=== PATIENT | male | born 1955 | race Caucasian/White ===

== ENCOUNTER 2020-07-31 09:06 | Day surgery (SDC) | payer BC ==
--- OUTSIDE RECORDS SUMMARY | 2020-07-31 09:08 | XMS REPORT | Clinical Summary ---
:1955 Author Organization [facility] Address [address] [place] [address] Care Team Providers Name Role Phone Provider Primary Care Provider Unavailable Allergies No Known Active Allergies Medications Medication Sig Dispensed Refills Start Date End Date Status rosuvastatin (CRESTOR) Take 40 mg by 0 Active 40 MG tablet mouth 3 (three) times a week. Every M-W- ALPRAZolam (XANAX) 0.25 Take 0.25 mg by 0 Active MG tablet mouth nightly. valsartan-hydrochloroth Take 1 tablet by 0 Active iazide (DIOVAN-HCT) mouth nightly. 320-12.5 mg per tablet famotidine (PEPCID) 10 Take 10 mg by 0 Active MG tablet mouth nightly. aspirin (ECOTRIN) 81 MG Take 81 mg by 0 Active enteric coated tablet mouth nightly. Active Problems Problem Noted Date Other urethral stricture, male, meatal 11/22/2018 Surgical History Surgery Date Site/Laterality Comments HERNIA REPAIR 07/03/1979 - Right Inguinal 07/02/1980 HAND SURGERY 07/03/1974 - Right bone repairof th umb 07/02/1975 COLONOSCOPY W/ POLYPECTOMY MEATOTOMY 12/07/2018 MEATOTOMY, URETHRA, ADULT, 12/07/2018 N/A Proce dure: MEATOTOMY MALE REPAIR; Surgeon : Darian Turcios MD; L ocation: [facility]; Se rvice: Urology; Latera lity: N/A; Medical History Medical History Date Comments Anesthesia NHAP; NFHAP Wears glasses Dentition All teeth intact and secured Hypertension Hypercholesteremia Exercises 3 to 4 times per week walks an d climb stairs with no chest pain or sob. Coronary artery disease denies any chest pain. GERD (gastroesophageal reflux disease) Hx of urethral stricture Social History Tobacco Use Types Packs/Day Years Used Date Former Smoker Cigarettes 1 10 Quit: 1985 Smokeless Tobacco: Never Used Alcohol Use Drinks/Week oz/Week Comments Yes 2 drinks per wee k Sex Assigned at Date Recorded Not on file Last Filed Vital Signs Not on file Plan of Treatment Health Maintenance Due Date Last Done Comments COVID-19 VACCINE (1 of 2) 1973 COLONOSCOPY SCREENING 2007 SHINGLES VACCINES (#1) 2007 INFLUENZA VACCINE 02/01/2020 Results Not on fileafter 07/31/2019 Advance Directives For more information, please contact: [phone] Type Date Recorded Patient Bill Hiker Explanati on Advance Directives, Living Will and Medical Power of Print Traffic Manager
--- OUTSIDE RECORDS SUMMARY | 2020-07-31 09:08 | XMS REPORT | Continuity of Care Document ---
:1955 Author Organization [facility] t Address [address] [place] [address] Support Name Relationship Address Phone Lia Designated Contact Unavailable [phone] L Lia Spouse [address] [facility] [address] [phone] [place] [address] Care Team Providers Name Role Phone Provider Primary Care Physician Unavailable Linda ACOSTA Attending Clinician Lab, Covid Attending Clinician Unavailable Only, Test Attending Clinician Unavailable Doctor Unassigned, Name Attending Clinician Unavailable Problems Condition Condition Condition Status Onset Resolution Last Treating Co mments Source Name Details Category Date Date Treatment Clinician Date Other Other Disease Active [place] urethral urethral 11-22 Method i stricture, stricture, 00:00: st male, male, 00 meatal meatal Allergies, Adverse Reactions, Alerts This patient has no known allergies or adverse reactions. Social History Social Habit Start Date Stop Date Quantity Comments Source [facility] of tobacco [facility] At [facility] ethod[facility] Cigarettes smoked 2018-12-11 2018-12-11 [place] [facility] current (pack per 00:00:00 00:00:00 day) - Reported Cigarette 2018-12-11 2018-12-11 [place] Method ist pack-years 00:00:00 00:00:00 Tobacco use and 2018-12-11 2018-12-11 Never used [facility] ethodist exposure 00:00:00 00:00:00 Alcohol intake 2018-12-11 2018-12-11 Current drinker [place] 00:00:00 00:00:00 of alcohol (finding) Alcohol Comment 2018-11-22 2018-11-22 2 drinks per [place] [facility] 00:00:00 00:00:00 week Smoking Status Start Date Stop Date Source Former smoker 2018-12-11 00:00:00 2018-12-11 00:00:00 [place] Medications Ordered Filled Start Stop Current Ordering Indication Dosage Frequency Signature Comments Components Source Medication Medication Date Date Medication? Clinician (SIG) Name Name guillermoastati 2019 Yes 40mg [id number] Take 40 mg [place] n (CRESTOR) 6-07 [id number] by mouth 3 Methodi 40 MG 14:50: 3W (three) st tablet 39 times a week. Every -- ALPRAZolam Yes .25mg QD Take 0.25 [place] (XANAX) 6-07 mg by Methodi 0.25 MG 14:50: mouth st tablet 39 nightly. valsartan-h Yes 1{tbl} QD Take 1 Ho uskaterin ydrochlorot 6-07 tablet by Met hodi hiazide 14:50: mouth st (DIOVAN-HCT 39 nightly. ) 320-12.5 mg per tablet famotidine Yes 10mg QD Take 10 mg [place] (PEPCID) 10 6-07 by mouth Meth jignesh MG tablet 14:50: nightly. st 39 aspirin Yes 81mg QD Take 81 mg [place] (ECOTRIN) 6-07 by mouth Method i 81 MG 14:50: nightly. st enteric 39 coated tablet Procedures This patient has no known procedures. Plan of Care Planned Activity Planned Date Details Comments Source Future Scheduled 2020-02-01 INFLUENZA VACCINE [place] [facility] Test 00:00:00 [code = INFLUENZA VACCINE] Future Scheduled 2007 COLONOSCOPY SCREENING [place] [facility] Test 00:00:00 [code = COLONOSCOPY SCREENING] Future Scheduled 2007 SHINGLES VACCINES [place] [facility] Test 00:00:00 (#1) [code = SHINGLES VACCINES (#1)] Future Scheduled 1973 COVID-19 VACCINE (1 [place] [facility] Test 00:00:00 of 2) [code = COVID-19 VACCINE (1 of 2)] Encounters Start End Encounter Admission Attending Care Care Encounter Source Date/Time Date/Time Type Type Clinicians Facility Department ID 2020-03-17 2020-03-17 Office Arnold Mckeon [id number] 13:35:07 16:39:46 Visit AMBULATOR [id number] Y [id number] 2019-12-25 2019-12-26 Order Processing Manager Lab, Pcp [facility] [id number] 10:04:30 08:30:32 Visit Covid PRIMARY [id number] CARE [id number] [facility] [id number] 2019-12-25 2019-12-25 Laboratory Only, Pcp [facility] [id number] 10:05:17 10:20:17 Only Test PRIMARY [id number] CARE [id number] PAVILLION [id number] 2019-12-25 2019-12-25 Patient Doctor [facility] [id number] 00:00:00 00:00:00 Secure Msg Unassigned, HEALTH [id number] [place] [id number] [facility] [id number] Primary & [facility] 2019-12-25 2019-12-25 Patient Doctor [facility] [id number] 00:00:00 00:00:00 Secure Msg Unassigned, HEALTH [id number] [place] [id number] [facility] [phone] Primary & [facility] Results This patient has no known results.
[2020-07-31] MEDS ORDERED: Ringers Lactate 1,000 ML IV ONE (09:41)
[2020-07-31] MEDS ORDERED: ACETAMINOPHEN 325 MG TABLET ONE (09:45)
[2020-07-31] MEDS: BUPIVACAINE 0.25% PF 10 ML VIAL ONE ×2 (10:19→10:58)
[2020-07-31] MEDS: CEFAZOLIN/SWI 1gm 1 GM/10 ML SYR ONE ×3 (10:20→10:50)
[2020-07-31] MEDS ORDERED: propofoL 200 MG/20 ML VIAL IV ONE (10:42)
[2020-07-31] MEDS ORDERED: FENTANYL CITR 100 MCG/2 ML ONE (10:42)
[2020-07-31] MEDS ORDERED: MIDAZOLAM HCL 2 MG/2 ML INJ ONE (10:42)
[2020-07-31] MEDS ORDERED: LIDOCAINE 1% MPF 5 ML VIAL ONE (10:42)
[2020-07-31] MEDS ORDERED: ONDANSETRON 4 MG/2 ML VIAL ONE (11:07)
[2020-07-31] MEDS ORDERED: KETOROLAC 30 MG/ML INJ ONE (11:07)
--- NOTE | 2020-07-31 11:20 | P.OP ---
Preoperative diagnosis: Upper middle, lower middle skin cyst, RIGHT flank skin lesion Postoperative diagnosis: Upper middle, lower middle skin cyst, RIGHT flank skin lesion Primary procedure: Wide local excision of Upper middle, lower middle skin cyst, RIGHT flank sk Anesthesia: GETA + Local Estimated blood loss: <1cc Specimen: 2 sebaceous cysts, one skin lesion Findings: infected sebeacous cyst of lower back, upper back cyst cavity, skin lesion Complications: None Transferred to: Recovery Room Condition: Good
[2020-07-31] MEDS ORDERED: EPHEDRINE SULF 50 MG/ML VIAL ONE (11:28)
[2020-07-31] MEDS ORDERED: NS 0.9% VIAL 10 ML ONE (11:28)
--- NOTE | 2020-07-31 11:52 | OP ---
Date of Procedure: 07/31/2020 Surgeon: Sg Hatfield MD, Preoperative Diagnoses: 1.Upper middle back skin cyst. 2.Lower midline back skin cyst. 3.Right flank hypopigmented skin lesion. Postoperative Diagnoses: 1.Upper middle back skin cyst. 2.Lower midline back skin cyst. 3.Right flank hypopigmented skin lesion. Procedure Performed: 1.A wide local excision of upper middle back cyst. 2.Wide local excision of lower middle infected sebaceous cyst. 3.Excision of right flank skin lesion. Anesthesia: General endotracheal plus local with 0.25% Marcaine without epinephrine. Estimated Blood Loss: Less than 1 cc. Specimen: Two sebaceous cysts and 1 hypopigmented skin lesion. Findin.Infected sebaceous cyst of the lower back approximately 2.5 cm x 1.5 cm down into the subcutaneous fat and abutting the muscular fascia, but not involving fascia. 2.Upper middle skin cyst was a cystic cavity containing only fluid and a cyst sac approximately 2 cm x 1 cm x 1 cm down to subcutaneous fat. 3.A right flank hypopigmented scaly skin lesion approximately 0.4 mm, round, fleshy lesion. Complications: None. Disposition: The patient transferred to recovery room in good condition. Procedure In Detail: After informed consent was obtained, the patient was brought to the operating r oom, prepped and draped in the usual sterile fashion. After adequate anesthesia was achieved, a curv ilinear incision was made on the lower midline back cyst down to subcutaneous tissues using a 15 blad e. Electrocautery was used to dissect circumferentially down around the cyst cavity as described abo ve. The cyst was then removed in its entirety, sent off for pathologic examination. There was dark discolored tissue inside consistent with a sebaceous cyst with infectious component. No pus was evid ent in the area. This was sent off for pathologic examination. After the complete cavity was remove d and the sac was sent, the wound was then copiously irrigated. Hemostasis was achieved with electro cautery and the wound was then closed in an interrupted fashion using 4-0 nylon sutures with good suhas roximation of tissues. I then turned my attention to the upper midline back skin cyst. In a similar fashion, a curvilinear incision was made through subcutaneous tissues down to dissect into the cysti c cavity which had fluid evident in here consistent with a seroma. The sac was removed in its entire ty down to subcutaneous fat and this was sent off for pathologic examination. The wound also had hem ostasis achieved with electrocautery and was irrigated copiously and dried. The skin was then closed with interrupted 4-0 nylon sutures and a sterile dressing was placed over the top of the 2 midline u pper and lower back lesions. I then grasped, elevated a skin lesion on the right flank which was suhas roximately 0.4 cm round and using a 15 blade, dissected down through into the dermal plane and sent t his off for pathologic examination. Hemostasis was achieved with electrocautery and Dermabond placed over top. The patient tolerated the procedure well without evidence of complication and transferred to PACU in good condition. All counts were correct at the end of the case. BATOOL/ELIZABETH Voice ID: [id number] Report ID: [id number]
[2020-07-31 12:03] VITALS: O2SAT 97
[2020-07-31] MEDS ORDERED: HYDROCODONE/APAP 7.5/325 MG TAB ONE (12:24)
[2020-07-31 13:46] VITALS: BP 123/74
[2020-07-31 13:48] VITALS: TEMP 97.2
== END 2020-07-31 13:18 | disposition home or self-care (01) ==
LOC: OR 09:06
PROVIDERS: ATTEND Surgery
PROC: 0JB70ZZ Excision of Back Subcutaneous Tissue and Fascia, Open Approach (ICD-10-PCS; principal; 2020-07-31 10:30)
DX: L72.0 Epidermal cyst (principal); Z20.822 Contact with and (suspected) exposure to COVID-19
CPT/HCPCS: 36415; 84132; 88304; 88305; 11403; 11402; 11400; U0002; J2704; J2250; J3010; J0690; J7120; J2405